=== PATIENT | female | born 1975 | race Caucasian/White ===

== ENCOUNTER 2017-11-08 20:40 | Inpatient (IN) | payer MEDICAID ==
[~2017-11-08] VITALS: Ht 154.9 cm; Wt 60.1 kg
[2017-11-08 20:46] VITALS: Ht 154.9 cm; Wt 60.1 kg
[2017-11-09 00:42] LABS: BASOPHIL % 0.2 % (0-2); PLATELET COUNT 242 x10^3mcL (130-400); RED CELL DISTRIBUTION WIDTH 13.5 % (11.5-14.5)
[2017-11-09 00:49] LABS: CALCIUM 8.9 mg/dL (8.5-10.1); CARBON DIOXIDE 28.9 mmol/L (21-32); CHLORIDE SERUM 104 mmol/L (98-107); CREATININE SERUM 0.6 mg/dL (0.6-1.0); GFR1 > 60 mL/min; GLUCOSE SERUM 107 mg/dL (74-106); POTASSIUM SERUM 3.6 mmol/L (3.5-5.1); SODIUM SERUM 139 mmol/L (136-145)
[2017-11-09 00:56] LABS: ALBUMIN 3.8 g/dL (3.4-5.0); ALKALINE PHOSPHATASE 212 U/L (46-116); ALT/SGPT 383 U/L (14-59); AST/SGOT 623 U/L (15-37); BILIRUBIN TOTAL 0.7 mg/dL (0.20-1.00); TOTAL PROTEIN, SERUM 7.5 g/dL (6.4-8.2)
[2017-11-09 04:10] LABS: T3 TOTAL 1.06 ng/mL
[2017-11-09 04:22] LABS: MAGNESIUM 2.4 mg/dL (1.8-2.4); PHOSPHOROUS 4.1 mg/dL (2.5-4.9)
[2017-11-09 04:30] LABS: CHOLESTEROL/HDL RATIO 4.2
[2017-11-09 04:37] LABS: FREE T4 1.32 ng/dL (0.76-1.46)
[2017-11-09 05:14] LABS: UA SPECIFIC GRAVITY <=1.005 (1.005-1.035); microscopic required? YES; urine erythrocyte 1+ (NEGATIVE)
[2017-11-09 05:21] LABS: AMPHETAMINE QUAL UR NONE DETECTED (See below)
[2017-11-09 08:13] VITALS: BP 112/73
[2017-11-09 08:40] VITALS: BP 122/72
[2017-11-09 16:51] VITALS: BP 116/73
[2017-11-09 22:05] VITALS: BP 118/64
[2017-11-10 06:03] VITALS: BP 105/64
[2017-11-10 06:15] LABS: BASOPHIL % 0.3 % (0-2); PLATELET COUNT 207 x10^3mcL (130-400); RED CELL DISTRIBUTION WIDTH 13.8 % (11.5-14.5)
[2017-11-10 06:44] LABS: CALCIUM 8.8 mg/dL (8.5-10.1); CARBON DIOXIDE 25.9 mmol/L (21-32); CHLORIDE SERUM 108 mmol/L (98-107); CREATININE SERUM 0.5 mg/dL (0.6-1.0); GFR1 > 60 mL/min; GLUCOSE SERUM 101 mg/dL (74-106); PHOSPHOROUS 3.6 mg/dL (2.5-4.9); POTASSIUM SERUM 3.9 mmol/L (3.5-5.1); SODIUM SERUM 143 mmol/L (136-145)
[2017-11-10 09:46] VITALS: BP 98/57
[2017-11-10 11:22] LABS: BILIRUBIN DIRECT 0.1 mg/dL (0.0-0.2); BILIRUBIN TOTAL 0.5 mg/dL (0.20-1.00); TOTAL PROTEIN, SERUM 6.3 g/dL (6.4-8.2)
[2017-11-10 11:25] LABS: ALBUMIN 3.3 g/dL (3.4-5.0)
[2017-11-10 14:30] VITALS: BP 98/57
[2017-11-10 16:54] VITALS: BP 102/63
== END 2017-11-10 17:40 | disposition home or self-care (01) | DRG 263 ==
LOC: ED 20:40 → DU 11-09 03:22 → MU 11-09 03:22 → DU 11-09 05:40 → MU 11-09 13:38
PROVIDERS: Emergency Medicine; Family Medicine; Internal Medicine Gastroenterology; Surgery
PROC: 0FT44ZZ Resection of Gallbladder, Percutaneous Endoscopic Approach (ICD-10-PCS; principal; 2017-11-09 09:00)
DX: K80.20 Calculus of gallbladder without cholecystitis without obstruction (principal); N17.0 Acute kidney failure with tubular necrosis; M94.0 Chondrocostal junction syndrome [Tietze]; R74.0 Nonspecific elevation of levels of transaminase and lactic acid dehydrogenase [LDH]; E78.5 Hyperlipidemia, unspecified; E44.1 Mild protein-calorie malnutrition
CPT/HCPCS: 83880; 84439; 94150; J0330; J1170; J1644; J1885; J2250; J2405; J2543; J2704; J2710; J3010; J3490; J7030; J7120; Q0092